=== PATIENT | female | born 1980 | race African-American/Black ===

== ENCOUNTER 2020-06-05 08:36 | Observation (INO) | payer OTHER ==
[~2020-06-05] VITALS: Ht 154.9 cm; Wt 72.6 kg
[2020-06-05] MEDS ORDERED: NS 1,000 ML IV ONE ×2 (09:45→10:00)
[2020-06-05 09:47] LABS: BASO % 0.6 % (0.0-1.0); EOS # 0.1 10^3/uL (0.0-0.5); EOS % 1.2 % (0.0-3.0); HEMATOCRIT 40.4 % (36.0-47.0); HEMOGLOBIN 13.3 g/dl (12.0-15.5); LYMPH # 1.9 10^3/uL (1.5-5.0); LYMPH % 28.5 % (24.0-44.0); MEAN CORPUSCULAR HEMOGLOBIN 25.6 pg (27.0-33.0); MEAN CORPUSCULAR HGB CONC 32.9 g/dl (32.0-36.5); MEAN CORPUSCULAR VOLUME 77.7 fl (80.0-96.0); MONO # 0.3 10^3/uL (0.0-0.8); MONO % 3.8 % (0.0-5.0); NEUTROPHILS # 4.4 10^3/uL (1.5-8.5); NEUTROPHILS % 65.7 % (36.0-66.0); PLATELET COUNT, AUTOMATED 262 10^3/uL (150-450); WHITE BLOOD COUNT 6.6 10^3/uL (4.0-10.0)
[2020-06-05] MEDS ORDERED: HumuLIN R (REGULAR) INSULIN (NovoLIN R) **100U/ML** PER UNIT IV STA (09:57)
[2020-06-05 10:01] LABS: VENOUS BASE EXCESS -4.9 (-2.0-2.0); VENOUS HCO3 20.5 MEQ/L (23.0-27.0); VENOUS O2 SATURATION 75.6 % (60.0-80.0); VENOUS PARTIAL PRESSURE CO2 39.1 mmHg (38.0-50.0); VENOUS PARTIAL PRESSURE O2 44.5 mmHg (30.0-50.0); VENOUS PH 7.337 UNITS (7.330-7.430); VENOUS TOTAL CO2 21.7 MEQ/L (24.0-28.0)
[2020-06-05 11:03] LABS: HCG, SERUM QUALITATIVE NEGATIVE (NEGATIVE)
[2020-06-05 11:13] LABS: BLOOD UREA NITROGEN 14 MG/DL (7-18); CALCIUM LEVEL 9.5 MG/DL (8.5-10.1); CARBON DIOXIDE LEVEL 24 MEQ/L (21-32); CHLORIDE LEVEL 93 MEQ/L (98-107); FREE T4 1.32 NG/DL (0.76-1.46); GLOMERULAR FILTRATION RATE 58.5 (>58); GLUCOSE, FASTING 770 MG/DL (70-100); POTASSIUM SERUM 4.5 MEQ/L (3.5-5.1); SODIUM LEVEL 129 MEQ/L (136-145)
[2020-06-05] MEDS ORDERED: DEPO150I12 IM (12:18)
[2020-06-05 13:29] LABS: HEMOGLOBIN A1c 12.3 %
[2020-06-05] MEDS ORDERED: GLUCOSE 4GM CHEW TABLET PO PRN (13:45)
[2020-06-05] MEDS ORDERED: DEXTROSE 50% 50 ML SYRINGE IV PRN (13:45)
[2020-06-05] MEDS ORDERED: GLUCAGON INJ 1MG VIAL SC PRN (13:45)
[2020-06-05 14:47] LABS: CHOLESTEROL LEVEL 191 MG/DL (<200); CHOLESTEROL RISK RATIO 8.304 (<5); HDL CHOLESTEROL 23 MG/DL (>40); IRON (FE) 47 UG/DL (50-170); NON-HDL-C 168 MG/DL; TRIGLYCERIDES LEVEL 601 MG/DL (<150)
[2020-06-05 14:48] LABS: FERRITIN 546 NG/ML (8-252); PERCENT SATURATION 17.7 % (13.2-45.0); TOTAL IRON BINDING CAPACITY 265 UG/DL (250-450)
--- NOTE | 2020-06-05 15:36 | HPEPDOC ---
[facility] Medical History & Physical Date of Admission Jun 05, 2020 Date of Service: Jun 05, 2020 Attending Physician: GLENIS VIVEROS MD History and Physical CHIEF COMPLAINT: Frequent urination, dry mouth, blurred vision for approximately 1 week duration. HISTORY OF PRESENT ILLNESS: Ms. Pearson presented to the ED complaining of polydipsia, polyuria, and blurred vision that had been going on for about 1 week. She notes that her mouth has felt very dry and last night she felt as though her steak dinner was getting "stuck to her tongue" so she decided to come to the ED. She also says she has been feeling kind of fatigued. She denies any of the following: fever, chills, nausea, vomiting, diarrhea. She has no significant medical history. She was found to have a blood glucose of 770 and a sodium of 129. She was admitted for observation and management of newly diagnosed diabetes. PAST MEDICAL HISTORY: 1. Iron deficiency anemia. 2. Sickle cell trait. PAST SURGICAL HISTORY: 1. BL breast reduction approx 5 yrs ago. 2. R big toe shortening approx 10 yrs ago. 3. Cyst removal from R hand approx 10 yrs ago. 4. Tonsillectomy approx 20 yrs ago. SOCIAL HISTORY: Resides in: [place] with 2 children. Children: 3. 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 Tobacco use: Never smoker. ETOH: Occasional beer. Illicit drug use: Denies. FAMILY HISTORY: Father: Unknown, generally healthy. Mother: Unknown, generally healthy. Children: 3 (ages 22, 10, 7). Hereditary Diseases: Sickle cell trait. ALLERGIES: Please see below. REVIEW OF SYSTEMS: CONSTITUTIONAL: Denies fever, chills, nausea, vomiting, or diarrhea. HEENT: Blurred vision (improves with glasses), no headache, congestion, or sore throat. CARDIOVASCULAR: Denies chest pain, pressure, or palpitations. RESPIRATORY: Denies shortness of breath, dyspnea, cough. GASTROINTESTINAL: Denies abdominal pain, vomiting, diarrhea. GENITOURINARY: Denies dysuria, hematuria. Polyuria. Slight vaginal spotting. SKIN: Denies rashes or lesions. MUSCULOSKELETAL: Denies weakness, pain. NEUROLOGICAL: Denies confusion, dizziness, tinnitus. PSYCHIATRIC: Denies depression, anxiety, SI/HI. ENDOCRINE: Polydipsia, polyuria. HEMATOLOGIC/LYMPHATIC: Denies new bruising or petechiae. HOME MEDICATIONS: Please see below. PHYSICAL EXAMINATION: VITAL SIGNS: Temperature 97.9, pulse 81, respiratory rate 18, blood pressure 138/90, pulse oximetry 99% on room air. GENERAL APPEARANCE: Pt appears lying in bed in no acute distress. HEENT: NC, AT, PERRLA, no pharyngeal erythema, mucous membranes moist, tongue coated. CARDIOVASCULAR: RRR, no murmurs, rubs, or gallops. LUNGS: CTAB, no rales, rhonchi, wheezes. ABDOMEN: soft, obese, nontender, nondistended, bowel sounds present in all 4 quadrants. EXTREMITIES: No swelling or edema, +2/4 pedal pulses bilaterally, good capillary refill in feet/toes. NEUROLOGICAL: Strength +5/5 all 4 extremities, sensation intact in all 4 extremi ties, EOMI. PSYCHIATRIC: Normal mood and affect. LABORATORY DATA: See below. IMAGING: none. MICROBIOLOGY: none. ASSESSMENT: Ms. Pearson is a 39 yo F with a PMHx of sickle cell trait who presented to the ED complaining of increased urination, increased thirst, and blurred vision for the past week, her blood glucose was 770 at time of presentation, she was admitted for observation and management of newly diagnosed diabetes. PLAN: 1. Polydipsia, polyuria, blurred vision 2/2 to undiagnosed diabetes. -Pt started on insulin drip in ED and blood glucose has come down to 410. -A1c of 12.3 -Pt will be started on sliding scale insulin and put on a consistent carbohydrate diet. -Blurred vision resolves with use of her glasses. Acute worsening of vision possibly 2/2 uncontrolled diabetes; will need outpatient ophthalmology follow up -Anti-CAITY antibody pending. -Normal thyroid panel 2. Hypertriglyceridemia. -Triglyceride level of 601. -ASCVD 10 yr risk of 9.4% -Pt will be started on atorvastatin 40mg -Will repeat levels in AM 3. Sickle cell trait -Monitor Hgb, Hct, MCV. DVT Prophylaxis: TEDs and sequentials. GI Prophylaxis: not indicated. DISPOSITION: Anticipate discharge home after 24h if condition remains stable. Vital Signs Vital Signs Date Time Temp Pulse Resp B/P (MAP) Pulse Ox O2 Delivery O2 Flow Rate FiO2 06/05/20 12:52 92 98 06/05/20 12:48 18 126/95 (105) Room Air 06/05/20 09:43 97.9 Laboratory Data Labs 24H Laboratory Tests 2 06/05/20 09:24: Immature Granulocyte % (Auto) 0.2, Neutrophils (%) (Auto) 65.7, Lymphocytes (%) (Auto) 28.5, Monocytes (%) (Auto) 3.8, Eosinophils (%) (Auto) 1.2, Basophils (%) (Auto) 0.6, Neutrophils # (Auto) 4.4, Lymphocytes # (Auto) 1.9, Monocytes # (Auto) 0.3, Eosinophils # (Auto) 0.1, Basophils # (Auto) 0.0, Nucleated Red Blood Cells % (auto) 0.0, Urine Color STRAW, Urine Appearance CLEAR, Urine pH 6.0, Urine Specific [place] 1.024, Urine Protein NEGATIVE, Urine Glucose (UA) 3+H, Urine Ketones 1+H, Urine Blood 2+H, Urine Nitrite NEGATIVE, Urine Bilirubin NEGATIVE, Urine Urobilinogen 0.2, Urine Leukocyte Esterase NEGATIVE, Urine WBC (Auto) 1, Urine RBC (Auto) 8H, Urine Hyaline Casts (Auto) 0, Urine Bacteria (Auto) NEGATIVE, Urine Squamous Epithelial Cells 0, Urine Sperm (Auto) , Estimated Mean Plasma Glucose 306H, Hemoglobin A1c 12.3 06/05/20 09:52: Blood Gas Bicarbonate Standard 20.0, Venous Blood pH 7.337, Venous Blood Partial Pressure CO2 39.1, Venous Blood Partial Pressure O2 44.5, Venous Blood Total Carbon Dioxide 21.7L, Venous Blood HCO3 20.5L, Venous Blood Oxygen Saturation 75.6, Venous Blood Base Excess -4.9L, Anion Gap 12, Glomerular Filtration Rate 58.5, Calcium Level 9.5, Thyroid Stimulating Hormone (TSH) 1.100, Free Thyroxine 1.32, Human Chorionic Gonadotropin, Qual NEGATIVE 06/05/20 11:15: Bedside Glucose (Misc Panel) 410H 06/05/20 14:01: CBC/BMP Laboratory Tests 06/05/20 09:24 06/05/20 09:52 Home Medications Scheduled Medroxyprogesterone Acetate (Depo-Provera) 150 Mg/1 Ml Syringe, 150 MG IM Q3M Allergies Coded Allergies: No Known Allergies (Unverified , 06/05/20) GME ATTESTATION GME ATTESTATION My faculty preceptor for this patient encounter was physically present during the encounter and was fully available. All aspects of the patient interview, examination, medical decision making process, and medical care plan development were reviewed and approved by the faculty preceptor. The faculty preceptor is aware and concurs with the plan as stated in the body of this note and will attest to such by his/her cosignature. ATTENDING NOTE I, Glenis Viveros, have independently examined this patient and performed my own physical exam, as well as reviewed the documentation and edited where necessary. I have discussed in detail with the resident / student the findings and plan of treatment as documented by the resident / student and edited their note. I agree with their findings and treatment plan and have edited their documentation. I will continue to follow the patient during this hospital stay. SABRINA DARLING S-3 Jun 05, 2020 15:36 GLENIS VIVEROS MD Jun 05, 2020 15:49
[2020-06-05] MEDS ORDERED: FENOFIBRATE 48 MG TAB (TRICOR) PO SCH (17:00)
[2020-06-05 17:05] LABS: BLOOD UREA NITROGEN 11 MG/DL (7-18); CALCIUM LEVEL 8.4 MG/DL (8.5-10.1); CARBON DIOXIDE LEVEL 25 MEQ/L (21-32); CHLORIDE LEVEL 103 MEQ/L (98-107); CREATININE FOR GFR 1.03 MG/DL (0.55-1.30); GLOMERULAR FILTRATION RATE > 60.0 (>58); GLUCOSE, FASTING 464 MG/DL (70-100); POTASSIUM SERUM 3.9 MEQ/L (3.5-5.1); SODIUM LEVEL 134 MEQ/L (136-145)
[2020-06-05] MEDS: HumaLOG INSULIN (NovoLOG) PER UNIT SC SCH (17:45)
[2020-06-05 18:00] VITALS: BP 149/91
[2020-06-05 18:14] LABS: HEMOGLOBIN A1c 12.4 %
[2020-06-05 19:30] VITALS: BP 129/65
[2020-06-05] MEDS ORDERED: ASPIRIN 81 MG CHEW TABLET PO ONE (20:00)
[2020-06-05] MEDS ORDERED: HumaLOG INSULIN (NovoLOG) PER UNIT SC ONE ×2 (20:00→23:15)
[2020-06-05 20:40] LABS: CK-MB VALUE MASS < 1.0 NG/ML (<3.6); CPK CREATINE PHOSPHOKINASE 247 U/L (26-192); TROPONIN I < 0.02 NG/ML (< 0.10)
[2020-06-05] MEDS ORDERED: HumaLOG INSULIN (NovoLOG) PER UNIT SC SCH (21:00)
[2020-06-05] MEDS: PANTOPRAZOLE 40MG TAB (PROTONIX) PO SCH (21:09)
[2020-06-05] MEDS: CALCIUM CARBONATE 500 MG CHEW U/D PO SCH (21:09)
[2020-06-05 21:31] LABS: CHOLESTEROL LEVEL 190 MG/DL (<200); HDL CHOLESTEROL 18 MG/DL (>40); TRIGLYCERIDES LEVEL 1109 MG/DL (<150)
[2020-06-05 22:00] VITALS: BP 146/92
[2020-06-06 06:00] VITALS: BP 122/83
[2020-06-06 07:35] LABS: BLOOD UREA NITROGEN 11 MG/DL (7-18); CALCIUM LEVEL 8.1 MG/DL (8.5-10.1); CARBON DIOXIDE LEVEL 22 MEQ/L (21-32); CHLORIDE LEVEL 101 MEQ/L (98-107); CHOLESTEROL LEVEL 185 MG/DL (<200); CREATININE FOR GFR 0.79 MG/DL (0.55-1.30); GLOMERULAR FILTRATION RATE > 60.0 (>58); GLUCOSE, FASTING 377 MG/DL (70-100); HDL CHOLESTEROL 20 MG/DL (>40); NON-HDL-C 165 MG/DL; POTASSIUM SERUM 3.8 MEQ/L (3.5-5.1); SODIUM LEVEL 135 MEQ/L (136-145); TRIGLYCERIDES LEVEL 798 MG/DL (<150)
[2020-06-06 08:05] LABS: MAGNESIUM LEVEL 2.1 MG/DL (1.8-2.4)
[2020-06-06 08:22] LABS: BASO % 0.4 % (0.0-1.0); EOS # 0.2 10^3/uL (0.0-0.5); HEMATOCRIT 36.4 % (36.0-47.0); HEMOGLOBIN 12.2 g/dl (12.0-15.5); LYMPH # 3.5 10^3/uL (1.5-5.0); LYMPH % 47.7 % (24.0-44.0); MEAN CORPUSCULAR HEMOGLOBIN 25.7 pg (27.0-33.0); MEAN CORPUSCULAR HGB CONC 33.5 g/dl (32.0-36.5); MEAN CORPUSCULAR VOLUME 76.8 fl (80.0-96.0); MONO # 0.3 10^3/uL (0.0-0.8); MONO % 4.1 % (0.0-5.0); NEUTROPHILS # 3.3 10^3/uL (1.5-8.5); NEUTROPHILS % 45.5 % (36.0-66.0); PLATELET COUNT, AUTOMATED 237 10^3/uL (150-450); RED BLOOD COUNT 4.74 10^6/uL (4.00-5.40); WHITE BLOOD COUNT 7.3 10^3/uL (4.0-10.0)
[2020-06-06] MEDS: CALCIUM CARBONATE 500 MG CHEW U/D PO SCH ×3 (08:59→21:28)
[2020-06-06] MEDS ORDERED: LEVEMIR (INSULIN DETEMIR) 1 UNITS/0.01ML SC SCH ×3 (09:00→21:00)
[2020-06-06] MEDS: HumaLOG INSULIN (NovoLOG) PER UNIT SC SCH ×3 (09:01→18:14)
[2020-06-06] MEDS: FENOFIBRATE 48 MG TAB (TRICOR) PO SCH (09:09)
[2020-06-06] MEDS ORDERED: INSUHUMDS SC (10:32)
[2020-06-06] MEDS ORDERED: FENO48TA7 PO (10:32)
[2020-06-06] MEDS ORDERED: ATOR40TA75 PO (10:32)
[2020-06-06] MEDS ORDERED: LANTINJ4 SC (10:32)
[2020-06-06] MEDS: ATORVASTATIN 20 MG TAB PO SCH (12:03)
[2020-06-06] MEDS ORDERED: LEVEMIR (INSULIN DETEMIR) 1 UNITS/0.01ML SC ONE (12:45)
[2020-06-06 14:00] VITALS: BP 138/88
[2020-06-06 15:13] LABS: MALB URINE SIEMENS 7.4 MG/L
[2020-06-06 15:33] LABS: CREATININE, URINE 25.6 MG/DL; MAU/CREAT RATIO 28.9 MCG/MG (0.0-30.0)
--- NOTE | 2020-06-06 17:12 | IPNPDOC ---
Text Note Date of Service The patient was seen on 06/06/20. NOTE HPI: Ms. Pearson is a 39 yo F that presented to the ED complaining of increased thirst, increased urination, and blurred vision for about a week duration. SUBJECTIVE: Last night at around 1930 pt complained of chest pain. The night team gave a chewable aspirin and ordered EKG and cardiac markers, both of which were negative. The patient had not eaten dinner before the pain began and the pain resolved with Tums and protonix. After eating and receiving those meds the chest pain resolved so it was likely 2/2 to acid reflux. She denied any shortness of breath or palpitations during the pain and admitted to decreased frequency of urination overnight. Today the pt was educated multiple times about lifestyle changes including diet and exercise by Dr. Cody and Nitin CORREIA. Insulin administration teaching was ordered. The patient is very naive regarding diabetes and the care involved so teaching was also done about what diabetes is, what HgbA1c is, and how she can work to prevent future complications. This afternoon the pt complained of dysuria so a urine culture was ordered. OBJECTIVE: VITAL SIGNS: please see below. GENERAL: Pt was lying comfortably in the bed eating breakfast in no acute distress. HEENT: NC, AT, EOMI, no scleral icterus, no pharyngeal erythema. NECK: no JVD or lymphadenopathy. CV: RRR, no murmurs, rubs or gallops. RESP: CTAB, no rales, rhonchi, or wheezes. ABDOMEN: soft obese, nontender, nondistended, bowel sounds present in all 4 q uadrants. EXTREMITIES: no swelling or edema. NEURO: sensation in tact in upper and lower extremities BL. PSYCH: Normal mood and affect. LABORATORY: please see below. MICROBIOLOGY: -URINE CULTURE (06/06/2020): pending. IMAGING: None. ASSESSMENT/PLAN: Ms. Pearson is a 39 yo F with a PMHx of sickle cell trait who presented to the ED complaining of increased thirst and urination as well as blurry vision, was found to have a blood glucose of 770, concerning for newly diagnosed diabetes. #. Newly diagnosed diabetes mellitus (A1c 12.4) -Pt was started on insulin sliding scale and levemir 20 units BID. -Sliding scale was adjusted to reflect her blood glucose trends (see medications). -Pt received education about her diagnosis, diet and exercise, and insulin administration. -Blood glucose has been trending down. #. Hypertriglyceridemia. -Pt was started on Atorvastatin 40 mg and Tricor 48 mg daily. #. Transient chest pain likely 2/2 to GERD. - EKG negative; troponins negative - Telemetry unrevealing - Resolved with Tums and Protonix #. Blurred vision likely 2/2 to undiagnosed diabetes. -Improves with use of her glasses. -Will likely improve as her blood glucose control improves. -Advised to see an political science chair regularly. #. Dysuria -Urine culture pending. #. Sickle cell trait. -Monitor Hgb, Hct, and MCV. DVT Prophylaxis: TEDs and sequentials. GI Prophylaxis: protonix 40 mg QHS DISPOSITION: Anticipate discharge to home tomorrow (06/07/2020) VS,Fishbone, I+O VS, Fishbone, I+O Laboratory Tests 06/06/20 06:16 06/06/20 08:07 Vital Signs Date Time Temp Pulse Resp B/P (MAP) Pulse Ox O2 Delivery O2 Flow Rate FiO2 06/06/20 14:00 99.2 89 18 138/88 (105) 97 Room Air I&O- Last 24 Hours up to 6 AM 06/06/20 06:00 Intake Total 3395 ml Output Total 300 ml Balance 3095 ml GME ATTESTATION GME ATTESTATION My faculty preceptor for this patient encounter was physically present during the encounter and was fully available. All aspects of the patient interview, examination, medical decision making process, and medical care plan development were reviewed and approved by the faculty preceptor. The faculty preceptor is aware and concurs with the plan as stated in the body of this note and will attest to such by his/her cosignature. ATTENDING NOTE I, Glenis Arnold, have independently examined this patient and performed my own physical exam, as well as reviewed the documentation and edited where necessary. I have discussed in detail with the resident / student the findings and plan of treatment as documented by the resident / student and edited their note. I agree with their findings and treatment plan and have edited their documentation. I will continue to follow the patient during this hospital stay. SABRINA DARLING OMS-3 Jun 06, 2020 17:12 GLENIS ARNOLD MD Jun 06, 2020 17:17
[2020-06-06] MEDS ORDERED: HumaLOG INSULIN (NovoLOG) PER UNIT SC SCH (21:00)
[2020-06-06] MEDS: PANTOPRAZOLE 40MG TAB (PROTONIX) PO SCH (21:28)
[2020-06-06 22:00] VITALS: BP 138/89
--- NOTE | 2020-06-07 05:55 | ECGEPIP ---
[facility] Test Date: 2020-06-05 Pat Name: JADON WALLACE Department: Room: [place] [address] Gender: Female Cd Technician: NILESH : 1980 Requested By: EVERARDO AQUINO Order Number: [id number] Reading MD: Venancio Carrasco Measurements Intervals [place] Rate: 94 P: 54 [place]: 137 QRS: 8 QRSD: 97 T: 11 QT: 353 QTc: 444 Interpretive Statements Normal sinus rhythm Nonspecific anterior repolarization abnormalities Comparison tracing not on file Electronically Signed on 06-07-2020 5:55:03 EDT by Venancio Carrasco
[2020-06-07 06:00] VITALS: BP 123/85
[2020-06-07 08:17] LABS: BASO % 0.3 % (0.0-1.0); EOS # 0.1 10^3/uL (0.0-0.5); EOS % 1.9 % (0.0-3.0); HEMATOCRIT 35.8 % (36.0-47.0); HEMOGLOBIN 12.2 g/dl (12.0-15.5); LYMPH # 2.8 10^3/uL (1.5-5.0); LYMPH % 44.8 % (24.0-44.0); MEAN CORPUSCULAR HGB CONC 34.1 g/dl (32.0-36.5); MEAN CORPUSCULAR VOLUME 76.3 fl (80.0-96.0); MONO # 0.3 10^3/uL (0.0-0.8); MONO % 4.8 % (0.0-5.0); NEUTROPHILS % 47.9 % (36.0-66.0); PLATELET COUNT, AUTOMATED 222 10^3/uL (150-450); RED BLOOD COUNT 4.69 10^6/uL (4.00-5.40); WHITE BLOOD COUNT 6.3 10^3/uL (4.0-10.0)
[2020-06-07 08:40] LABS: BLOOD UREA NITROGEN 9 MG/DL (7-18); CALCIUM LEVEL 8.6 MG/DL (8.5-10.1); CARBON DIOXIDE LEVEL 24 MEQ/L (21-32); CHLORIDE LEVEL 104 MEQ/L (98-107); CREATININE FOR GFR 0.74 MG/DL (0.55-1.30); GLOMERULAR FILTRATION RATE > 60.0 (>58); GLUCOSE, FASTING 340 MG/DL (70-100); MAGNESIUM LEVEL 2.2 MG/DL (1.8-2.4); POTASSIUM SERUM 3.9 MEQ/L (3.5-5.1); SODIUM LEVEL 138 MEQ/L (136-145)
[2020-06-07] MEDS: CALCIUM CARBONATE 500 MG CHEW U/D PO SCH (08:46)
[2020-06-07] MEDS: FENOFIBRATE 48 MG TAB (TRICOR) PO SCH (08:46)
[2020-06-07] MEDS: ATORVASTATIN 20 MG TAB PO SCH (08:46)
[2020-06-07] MEDS: HumaLOG INSULIN (NovoLOG) PER UNIT SC SCH ×2 (08:48→13:14)
[2020-06-07] MEDS ORDERED: LEVEMIR (INSULIN DETEMIR) 1 UNITS/0.01ML SC SCH (09:00)
[2020-06-07] MEDS ORDERED: LANTINJ4 SC ×2 (10:51→12:16)
[2020-06-07] MEDS ORDERED: LANCMIS33 TOP ×2 (11:21→12:16)
[2020-06-07] MEDS ORDERED: BD I1MIS14 SC ×2 (11:21→12:16)
[2020-06-07] MEDS ORDERED: ALCOPAD25 TOP ×2 (11:25→12:16)
[2020-06-07] MEDS ORDERED: BLOOKIT21 XX ×2 (11:25→12:16)
[2020-06-07] MEDS ORDERED: GLUC1TES2 XX ×2 (11:25→12:16)
[2020-06-07] MEDS ORDERED: ATOR40TA75 PO (12:16)
[2020-06-07] MEDS ORDERED: INSUHUMDS SC (12:16)
[2020-06-07] MEDS ORDERED: FENO48TA7 PO (12:16)
[2020-06-07] MEDS ORDERED: PEN1MIS21 SC (12:17)
--- NOTE | 2020-06-07 13:30 | DS.PDOC ---
Discharge Summary General Date of Admission Jun 05, 2020 at 12:51 Date of Discharge Jun 07, 2020 Attending Physician: GLENIS ARNOLD MD Discharge Summary PROCEDURES PERFORMED DURING STAY: None. ADMITTING DIAGNOSES/DISCHARGE DIAGNOSES: 1. Diabetes Mellitus 2. Sickle Cell Trait 3. Hypertriglyceridemia COMPLICATIONS/CHIEF COMPLAINT: Increased thirst, increased urination, blurred vision. HISTORY OF PRESENT ILLNESS: Ms. Pearson presented to the ED on 06/05/2020 complaining of polydipsia, polyuria, and blurred vision that had been going on for about 1 week. She noted that her mouth has felt very dry and the night before she felt as though her steak dinner was getting "stuck to her tongue" so she decided to come to the ED. She also admitted to some fatigue. She denied any of the following: fever, chills, nausea, vomiting, diarrhea. She has no significant medical history. She was found to have a blood glucose of 770 and a sodium of 129. She was admitted for observation and management of newly diagnosed diabetes. HOSPITAL COURSE/DISCHARGE PLAN: After being admitted for observation on the evening of 06/05 around 1930 the pt complained of chest pain. She was given a chewable aspirin and ordered EKG and cardiac markers, both of which were negative. The patient had not eaten dinner before the pain began and the pain resolved with Tums and protonix so it was likely due to GERD/non cardiac cause. She denied any shortness of breath or palpitations during the pain and admitted to decreased frequency of urination overnight. The pt's triglycerides were found to be significantly elevated so she was started on fenofibrate and atorvastatin. The pt was educated about diabetes and insulin administration by the hospitalist team, shank faker, nursing. Throughout her stay her blood glucose has been trending down. Her long-acting and sliding scale insulin have been increased and adjusted multiple times during her stay. The pt is advised to follow up with her PCP at [facility] within 7 days and to schedule an appointment with Dr Poncho Lancaster within 7 days. DISCHARGE MEDICATIONS: Please see below. ALLERGIES: Please see below. PHYSICAL EXAMINATION ON DISCHARGE: VITAL SIGNS: Please see below. GENERAL: Pt seen lying in bed in no acute distress. HEENT: NC, AT, EOMI, no scleral icterus, no pharyngeal erythema. NECK: no JVD or lymphadenopathy appreciated. CARDIOVASCULAR EXAMINATION: RRR, no murmurs, rubs, or gallops. RESPIRATORY EXAMINATION: CTAB, no rales, rhonchi, or wheezes. ABDOMINAL EXAMINATION: Soft, obese, nontender, nondistended, bowel sounds present in all quadrants. EXTREMITIES: no swelling or edema. SKIN: no rashes or lesions. NEUROLOGICAL EXAMINATION: CN II-XII grossly intact, PERRLA. PSYCHIATRIC EXAMINATION: Normal mood and affect. LABORATORY DATA: Please see below. IMAGING: None. PROGNOSIS: Good. ACTIVITY: As tolerated. DIET: Diabetic, consistent carbohydrate. DISPOSITION: Discharge home. DISCHARGE INSTRUCTIONS/THINGS TO FOLLOW UP OUTPATIENT: 1. Call [facility] to make a follow up appointment within 7 days. 2. Schedule appointment with Dr. Poncho Lancaster within 7 days. 3. Glucometer, testing strips, syringes, and lancets all sent to pharmacy. 3. Comply with treatment plan and medications. 4. Return to ER if you experience any problems DISCHARGE CONDITION: Stable. TIME SPENT ON DISCHARGE: 25 minutes. Vital Signs/I&Os Vital Signs Date Time Temp Pulse Resp B/P (MAP) Pulse Ox O2 Delivery O2 Flow Rate FiO2 06/07/20 06:00 98.9 81 16 123/85 (98) 96 Room Air I&O- Last 24 Hours up to 6 AM 06/07/20 06:00 Intake Total 2550 ml Output Total 2000 ml Balance 550 ml Laboratory Data Labs 24H Laboratory Tests 2 06/06/20 13:30: Urine Creatinine 25.6, Urine Microalbumin 7.4, Urine Microalbumin/Creatinine Ratio 28.9 06/06/20 13:50: Bedside Glucose (Misc Panel) 329H 06/06/20 14:25: Urine Color STRAW, Urine Appearance CLEAR, Urine pH 5.0, Urine Specific [place] 1.018, Urine Protein NEGATIVE, Urine Glucose (UA) 3+H, Urine Ketones 2+H, Urine Blood 1+H, Urine Nitrite NEGATIVE, Urine Bilirubin NEGATIVE, Urine Urobilinogen 0.2, Urine Leukocyte Esterase NEGATIVE, Urine WBC (Auto) 1, Urine RBC (Auto) 0, Urine Hyaline Casts (Auto) 0, Urine Bacteria (Auto) NEGATIVE, Urine Squamous Epithelial Cells 0, Urine Sperm (Auto) 06/06/20 15:07: Lab Scanned Report Miscellaneous Lab 06/06/20 15:29: Lab Scanned Report Miscellaneous Lab 06/06/20 16:01: Bedside Glucose (Misc Panel) 297H 06/06/20 18:02: Bedside Glucose (Misc Panel) 390H 06/06/20 19:57: Bedside Glucose (Misc Panel) 402H 06/07/20 05:54: Bedside Glucose (Misc Panel) 320H 06/07/20 07:56: Anion Gap 10, Glomerular Filtration Rate > 60.0, Calcium Level 8.6, Magnesium Level 2.2 06/07/20 07:57: Immature Granulocyte % (Auto) 0.3, Neutrophils (%) (Auto) 47.9, Lymphocytes (%) (Auto) 44.8H, Monocytes (%) (Auto) 4.8, Eosinophils (%) (Auto) 1.9, Basophils (%) (Auto) 0.3, Neutrophils # (Auto) 3.0, Lymphocytes # (Auto) 2.8, Monocytes # (Auto) 0.3, Eosinophils # (Auto) 0.1, Basophils # (Auto) 0.0, Nucleated Red Blood Cells % (auto) 0.0 06/07/20 11:44: Bedside Glucose (Misc Panel) 337H CBC/BMP Laboratory Tests 06/07/20 07:56 06/07/20 07:57 FSBS Laboratory Tests Test 06/06/20 13:50 06/06/20 16:01 06/06/20 18:02 06/06/20 19:57 Range/Units Bedside Glucose (Misc Panel) 329 297 390 402 70-105 MG/DL Test 06/07/20 05:54 06/07/20 11:44 Range/Units Bedside Glucose (Misc Panel) 320 337 70-105 MG/DL Discharge Medications Scheduled Atorvastatin Calcium (Atorvastatin Calcium) 40 Mg Tablet, 1 TAB PO DAILY Blood Sugar Diagnostic (Advanced Glucose Test Strips) 1 Each Strip, 1 STRIP XX ASDIRECTED check blood sugar four times per day (before meals and at night) Fenofibrate Nanocrystallized (Fenofibrate) 48 Mg Tablet, 48 MG PO DAILY Insulin Glargine,Hum.rec.anlog (Lantus Solostar) 100 Unit/1 Ml Insuln.pen, 30 UNIT SC BID . Insulin Human Lispro (Humalog) 100 Unit/1 Ml Vial, 0 SC ACHS As per [facility] Insulin Sliding Scale 1 month supply Medroxyprogesterone Acetate (Depo-Provera) 150 Mg/1 Ml Syringe, 150 MG IM Q3M, (Reported) Allergies Coded Allergies: No Known Allergies (Unverified , 06/05/20) GME ATTESTATION GME ATTESTATION My faculty preceptor for this patient encounter was physically present during the encounter and was fully available. All aspects of the patient interview, examination, medical decision making process, and medical care plan development were reviewed and approved by the faculty preceptor. The faculty preceptor is aware and concurs with the plan as stated in the body of this note and will attest to such by his/her cosignature. ATTENDING NOTE I, Glenis Arnold, have independently examined this patient and performed my own physical exam, as well as reviewed the documentation and edited where necessary. I have discussed in detail with the resident / student the findings and plan of treatment as documented by the resident / student and edited their note. I agree with their findings and treatment plan and have edited their documentation. I will continue to follow the patient during this hospital stay. Time spent on discharge 25 minutes SABRINA DARLING OMS-3 Jun 07, 2020 13:30 GLENIS ARNOLD MD Jun 07, 2020 16:41
[2020-06-13 13:07] LABS: TRANSFERRIN 223 mg/dL (192-364)
== END 2020-06-07 13:34 | disposition home or self-care (01) ==
LOC: M ED 08:36 → M ED INP 12:51 → ENRESERV 15:10 → M MSPAV 15:45
PROVIDERS: ADMIT Internal Medicine; ATTEND Internal Medicine
DX: E11.65 Type 2 diabetes mellitus with hyperglycemia (principal); D57.3 Sickle-cell trait; E78.1 Pure hyperglyceridemia; E87.1 Hypo-osmolality and hyponatremia; R07.9 Chest pain, unspecified; D50.9 Iron deficiency anemia, unspecified; Z79.899 Other long term (current) drug therapy; Z79.4 Long term (current) use of insulin

== ENCOUNTER 2020-12-25 14:22 | Emergency (ER) | payer OTHER ==
[~2020-12-25] VITALS: Ht 157.5 cm; Wt 76.8 kg
[~2020-12-25 14:22] MED LIST: ALCOPAD25 TOP; ATOR40TA75 PO; BD I1MIS14 SC; BLOOKIT21 XX; DEPO150I12 IM; FENO48TA7 PO; GLUC1TES2 XX; INSUHUMDS SC; LANCMIS33 TOP; LANTINJ4 SC; PEN1MIS21 SC
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
[2020-12-25 15:38] LABS: HEMATOCRIT 38.4 % (36.0-47.0); HEMOGLOBIN 12.6 g/dl (12.0-15.5); MEAN CORPUSCULAR HGB CONC 32.8 g/dl (32.0-36.5); MEAN CORPUSCULAR VOLUME 76.3 fl (80.0-96.0); PLATELET COUNT, AUTOMATED 279 10^3/uL (150-450); RED BLOOD COUNT 5.03 10^6/uL (4.00-5.40); WHITE BLOOD COUNT 8.4 10^3/uL (4.0-10.0)
[2020-12-25 16:08] LABS: ALBUMIN 3.7 GM/DL (3.2-5.2); ALT/SGPT 23 U/L (12-78); BILIRUBIN,TOTAL 0.4 MG/DL (0.2-1.0); BLOOD UREA NITROGEN 15 MG/DL (7-18); CALCIUM LEVEL 9.6 MG/DL (8.5-10.1); CARBON DIOXIDE LEVEL 23 MEQ/L (21-32); CHLORIDE LEVEL 104 MEQ/L (98-107); CK-MB VALUE MASS < 1.0 NG/ML (<3.6); CPK CREATINE PHOSPHOKINASE 278 U/L (26-192); CREATININE FOR GFR 0.83 MG/DL (0.55-1.30); GLOMERULAR FILTRATION RATE > 60.0 (>58); GLUCOSE, FASTING 307 MG/DL (70-100); MB/CK RELATIVE INDEX 0.36 (< OR =4); POTASSIUM SERUM 3.5 MEQ/L (3.5-5.1); SODIUM LEVEL 141 MEQ/L (136-145); TOTAL PROTEIN 7.4 GM/DL (6.4-8.2); TROPONIN I < 0.02 NG/ML (< 0.10)
[2020-12-25 19:00] VITALS: BP 134/94
--- NOTE | 2020-12-26 07:58 | ECGEPIP ---
[facility] - ED Test Date: 2020-12-25 Pat Name: JADON WALLACE Department: Room: - Gender: Female Customer Solutions Coordinator: MEGHAN : 1980 Requested By: ISAK Banegas Order Number: [id number] Reading MD: Fer Briscoe Measurements Intervals [place] Rate: 104 P: 39 [place]: 138 QRS: 7 QRSD: 94 T: 11 QT: 344 QTc: 452 Interpretive Statements Sinus tachycardia INCOMPLETE RIGHT BUNDLE BRANCH BLOCK Minimal voltage criteria for LVH, may be normal variant ( [place] product ) SIMILAR TO 06/05/20 Electronically Signed on 12-26-2020 7:58:17 EDT by Fer Briscoe
== END 2020-12-25 19:36 | disposition home or self-care (01) ==
LOC: EDBD 14:22 → M ED 14:22
DX: J70.5 Respiratory conditions due to smoke inhalation (principal); J02.9 Acute pharyngitis, unspecified; X13.0XXA Inhalation of steam and other hot vapors, initial encounter; Y92.009 Unspecified place in unspecified non-institutional (private) residence as the place of occurrence of the external cause; Y93.G3 Activity, cooking and baking; Z79.4 Long term (current) use of insulin; Z79.899 Other long term (current) drug therapy